=== PATIENT | male | born 1965 | race Caucasian/White ===

== ENCOUNTER 2018-12-27 09:57 | Emergency (ER) | payer BC ==
[~2018-12-27] VITALS: Ht 165.1 cm; Wt 73.6 kg
[2018-12-27] MEDS ORDERED: IBUP-1114 PO (10:14)
[2018-12-27] MEDS ORDERED: CYCLOBENZAPRINE 10 MG TAB PO ONE (10:30)
[2018-12-27] MEDS ORDERED: KETOROLAC 60 MG/2 ML VIAL (J1885) IM ONE (10:30)
[2018-12-27] MEDS ORDERED: ACETAMINOPHEN 325 MG TAB PO ONE (10:30)
--- NOTE | 2018-12-27 12:01 | REP ---
Lumbar spine series: Five views. History: History of herniated disc L1-2. Back pain. Decreased range of motion. Findings: There is a mild levoconvex curvature on the frontal view. Lumbar vertebral body heights are preserved. There is straightening on the lateral radiograph. Discogenic spurring is seen to some degree at each lumbar and lower thoracic level. Mild in degree. There is mild disc space narrowing at L2-3 and L3-4. Vertebral body heights are preserved. There is no evidence of spondylolysis or spondylolisthesis. There is facet hypertrophy and sclerosis bilaterally at L5-S1. Psoas margins are symmetric. Sacrum and SI joints are intact. Impression: Mild degenerative spondylosis changes. No acute bony abnormality. Electronically Signed by Lamont Stone MD 12/27/2018 12:37 P
[2018-12-27 12:13] VITALS: BP 120/77
[2018-12-27] MEDS ORDERED: CYCL10TA PO (12:45)
[2018-12-27] MEDS ORDERED: KETO10TAB PO (12:45)
== END 2018-12-27 12:52 | disposition home or self-care (01) ==
LOC: M ED 09:57
DX: S39.012A Strain of muscle, fascia and tendon of lower back, initial encounter (principal); X58.XXXA Exposure to other specified factors, initial encounter; Y92.89 Other specified places as the place of occurrence of the external cause
CPT/HCPCS: 72110; 96372; 99283; J1885

== ENCOUNTER 2020-03-29 13:39 | Day surgery (SDC) | payer BC ==
[~2020-03-29] VITALS: Ht 165.1 cm; Wt 69.0 kg
[~2020-03-29 13:39] MED LIST changes: -AMOX500T2 PO; -GASTROGRAFIN SOLUTION 30ML (Q9963) As Ordered ONE; -HYDR-3715 PO; -ISOVUE-370 76% 100ML VIAL As Ordered ONE
--- OUTSIDE RECORDS SUMMARY | 2020-03-29 13:45 | CCD | Continuity of Care Document ---
Author Author [facility] Organization Unknown Address [address] [place] [address] [place] [address] Phone [phone] Care Team Providers Care Bank Accountant Name Role Phone Peggy Fontana MD [facility] [phone] Problems Description No Information Available Social History Type Date Description Comments Sex Unknown Tobacco Use Start: Unknown Never Smoked Cigarettes ETOH Use Rarely consumes alcohol Tobacco Use Start: Unknown Patient has never smoked Allergies, Adverse Reactions, Alerts Description No Known Drug Allergies Medications Active Medications SIG Qnty Indications Ordering Provide r Date Epipen 2-Rahat 0.3mg/0 .3ML Solution Auto-Inject intramuscular auto-injection to outer thigh as directe d for anaphylaxis 2units L50.1 Diogo Rutledge JR., M.D. 10/19/2016 Aleve 220mg Capsules Unknown Benadryl Allergy 25mg Capsules last night Unknown Mvi Unknown Medications Administered in Office Medication SIG Qnty Indications Ordering Provider Date Methylprednisolone Sodium Succinate To 1 25 MG Injection LUC Tucker 017 Immunizations CPT Code Status Date Vaccine Reaction Lot # [id number] Given 01/28/2020 Influenza Virus Vaccine, Quadrivalent (Cciiv4), Derived From Cell 64533 Given 01/13/2019 Influenza Virus Vaccine, Quadrivalent (Cciiv4), Derived From Cell 78860 Given 01/14/2018 Influenza Virus Vaccine, Quadrivalent (Cciiv4), Derived From Cell 99130 Given 12/19/2016 Influenza Virus Vaccine, Quadrivalent, Split Virus, Im Use No reation. [id number] Vital Signs Date Vital Result Comment 01/21/2017 1:36pm BP Systolic 120 mmHg BP Diastolic 80 mmHg Heart Rate 71 /min Respiratory Rate 18 /min O2 % BldC Oximetry 98 % Body Temperature 98.4 F Weight 150.00 lb Height 65 inches 5'5" BMI (Body Mass Index) 25.0 kg/m2 Pain Level 1 10/19/2016 8:18am BP Systolic 118 mmHg BP Diastolic 84 mmHg Heart Rate 76 /min Respiratory Rate 18 /min O2 % BldC Oximetry 99 % Body Temperature 98.6 F Weight 140.00 lb Height 65 inches 5'5" BMI (Body Mass Index) 23.3 kg/m2 Pain Level 5 Results Description No Information Available Procedures Description No Information Available Medical Devices Description No Information Available Encounters Description No Information Available Assessments Date Code Description Provider 01/28/2020 Z23 Encounter for immunization LUC Schwartz Plan of Treatment 01/21/2017 - LUC Tucker* J20.9 Acute bronchitis, unspecified* New Medication:* Augmentin 875-125 mg - 1 tab by mouth twice a day for 10 days * Comments:* Medications as directed.Increase fluids and rest.Tylenol and ibuprofen for fevers and body aches.Follow up if no improvement over the next 5-7 days or if symptoms significantly worsen.Patient verbalized understanding and was agreeable to plan. Functional Status Description No Information Available Mental Status Description No Information Available Referrals Description No Information Available
--- OUTSIDE RECORDS SUMMARY | 2020-03-29 13:45 | CCD ---
Author Author [facility] Organization [facility] Address Unknown Phone Unavailable Care Team Providers Care Military Education Coordinator Name Role Phone Jaun, Elise TREATING PLANT OPERATOR Unavailable Unavailable Jaun, Elise TREATING PLANT OPERATOR Unavailable Unavailable Jaun, Elise TREATING PLANT OPERATOR Unavailable Unavailable Jaun, Elise TREATING PLANT OPERATOR Unavailable Unavailable Jaun, Elise TREATING PLANT OPERATOR Unavailable Unavailable Jaun, Elise TREATING PLANT OPERATOR Unavailable Unavailable Jaun, Elise TREATING PLANT OPERATOR Unavailable Unavailable Jaun, Elise TREATING PLANT OPERATOR Unavailable Unavailable Jaun, Elise TREATING PLANT OPERATOR Unavailable Unavailable Jaun, Elise TREATING PLANT OPERATOR Unavailable Unavailable Jaun, Elise TREATING PLANT OPERATOR Unavailable Unavailable Jaun, Elise TREATING PLANT OPERATOR Unavailable Unavailable Jaun, Elise TREATING PLANT OPERATOR Unavailable Unavailable Jaun, Elise TREATING PLANT OPERATOR Unavailable Unavailable Jaun, Elise TREATING PLANT OPERATOR Unavailable Unavailable Jaun, Elise TREATING PLANT OPERATOR Unavailable Unavailable Jaun, Elise TREATING PLANT OPERATOR Unavailable Unavailable Jaun, Elise TREATING PLANT OPERATOR Unavailable Unavailable Jaun, Elise TREATING PLANT OPERATOR Unavailable Unavailable Jaun, Elise TREATING PLANT OPERATOR Unavailable Unavailable Jaun, Elise TREATING PLANT OPERATOR Unavailable Unavailable Jaun, Elise TREATING PLANT OPERATOR Unavailable Unavailable Jaun, Elise TREATING PLANT OPERATOR Unavailable Unavailable Jaun, Elise TREATING PLANT OPERATOR Unavailable Unavailable Jaun, Elise TREATING PLANT OPERATOR Unavailable Unavailable Jaun, Elise TREATING PLANT OPERATOR Unavailable Unavailable Jaun, Elise TREATING PLANT OPERATOR Unavailable Unavailable Jaun, Elise TREATING PLANT OPERATOR Unavailable Unavailable Jaun, Elise TREATING PLANT OPERATOR Unavailable Unavailable Jaun, Elise TREATING PLANT OPERATOR Unavailable Unavailable Jaun, Elise TREATING PLANT OPERATOR Unavailable Unavailable Jaun, Elise TREATING PLANT OPERATOR Unavailable Unavailable Jaun, Elise TREATING PLANT OPERATOR Unavailable Unavailable Jaun, Elise TREATING PLANT OPERATOR Unavailable Unavailable Jaun, Elise TREATING PLANT OPERATOR Unavailable Unavailable Jaun, Elise TREATING PLANT OPERATOR Unavailable Unavailable Jaun, Elise TREATING PLANT OPERATOR Unavailable Unavailable Jaun, Elise TREATING PLANT OPERATOR Unavailable Unavailable Jaun, Elise TREATING PLANT OPERATOR Unavailable Unavailable Jaun, Elise TREATING PLANT OPERATOR Unavailable Unavailable Jaun, Elise TREATING PLANT OPERATOR Unavailable Unavailable Jaun, Elise TREATING PLANT OPERATOR Unavailable Unavailable Jaun, Elise TREATING PLANT OPERATOR Unavailable Unavailable Jaun, Elise TREATING PLANT OPERATOR Unavailable Unavailable Jaun, Elise TREATING PLANT OPERATOR Unavailable Unavailable Jaun, Elise TREATING PLANT OPERATOR Unavailable Unavailable Jaun, Elise TREATING PLANT OPERATOR Unavailable Unavailable Jaun, Elise TREATING PLANT OPERATOR Unavailable Unavailable Jaun, Elise TREATING PLANT OPERATOR Unavailable Unavailable Jaun, Elise TREATING PLANT OPERATOR Unavailable Unavailable Jaun, Elise TREATING PLANT OPERATOR Unavailable Unavailable Jaun, Elise TREATING PLANT OPERATOR Unavailable Unavailable Jaun, Elise TREATING PLANT OPERATOR Unavailable Unavailable Re-disclosure Warning The records that you are about to access may contain information from federally-assisted alcohol or drug abuse programs. If such information is present, then the following federally mandated warning applies: This information has been disclosed to you from records protected by federal confidentiality rules (42 CFR part 2). The federal rules prohibit you from making any further disclosure of this information unless further disclosure is expressly permitted by the written consent of the person to whom it pertains or as otherwise permitted by 42 CFR part 2. A general authorization for the release of medical or other information is NOT sufficient for this purpose. The Federal rules restrict any use of the information to criminally investigate or prosecute any alcohol or drug abuse patient.The records that you are about to access may contain highly sensitive health information, the redisclosure of which is protected by Article 27-F of the [facility] Public Health law. If you continue you may have access to information: Regarding HIV / AIDS; Provided by facilities licensed or operated by the [facility] Office of Mental Health; or Provided by the [facility] Office for People With Developmental Disabilities. If such information is present, then the following [facility] mandated warning applies: This information has been disclosed to you from confidential records which are protected by state law. State law prohibits you from making any further disclosure of this information without the specific written consent of the person to whom it pertains, or as otherwise permitted by law. Any unauthorized further disclosure in violation of state law may result in a fine or care home sentence or both. A general authorization for the release of medical or other information is NOT sufficient authorization for further disc losure. Family History Family Member Name Family Member Gender Family Member Status Date o f Status Description Data Source(s) Unknown Female Problem [facility] Unknown Unknown Problem MEDENT ([facility], [facility]) Unknown Unknown Problem MEDENT (Ruddy Martínez MD, ) Encounters Encounter Providers Location Date Indications Data Source(s ) Outpatient Attender: Elise Zamorano TREATING PLANT OPERATOR Aamir Reynolds 06/23/2019 08:30:00 AM EDT MEDENT ([facility] ) Immunizations Vaccine Date Status Description Data Source(s) Influenza Virus Vaccine, Quadrivalent (Cciiv4), Derive d From Cell 01/28/2020 07:27:00 AM EST completed MEDENT ([facility]) Medications Medication Brand Name Start Date Product Form Dose Route Admi nistrative Instructions Pharmacy Instructions Status Indications Reaction Description Data Source(s) Shingrix Shingrix 06/23/2019 12:00:00 AM EDT activ e MEDENT ([facility]) Insurance Providers Payer name Policy type / Coverage type Policy ID Covered democrat ID Covered democrat's relationship to murrell Policy Murrell Plan Information [place]/307 [id number] SP [id number] EXCELL[employer] BCBS B [id number] [place] [id number] [place] 302/307 [id number] SP [id number] [place] 302/307 [id number] SP [id number] [facility] Trad/MX Medigap Part B [id number] Self [id number] [facility] Trad/MX Commercial [id number] Self [id number] [facility] Trad/MX Commercial [id number] Self [id number] [facility] Trad/MX Commercial [id number] Self [id number] BCBS/[employer]cell[employer] Commercial [id number] Self [place] [id number] BC[place]/[employer] Commercial [id number] [place] [id number] BS [employer] Trad/MX Commercial [id number] Self [id number] Lifetime Benefit Solution Commercial Self Excell[employer] BCBS Health Maintenance Organization (HMO) [id number] Self [id number] BS Awais Trad/MX Commercial Self BCBS/[place]cellus Commercial Self BC/BS Of [facility] Commercial Self [place] 305/805 [id number] SP [id number] [place] 305/805 [id number] SP [id number] Results ID Date Data Source [id number] 06/25/2019 01:37:00 PM JHOAN HARVEY ([facility]) Name Value Range Interpretation Code Description Data Joellen rce(s) Supporting Document(s) Hemoglobin.gastrointestinal [Presence] in Stool by Imm unologic method Laboratory test result [facility] ) Procedure Vital Signs ID Date Data Source UNK Name Value Range Interpretation Code Description Data Source(s) Body mass index (BMI) [Ratio] 27.8 kg/m2 27.8 k g/m2 WES ([facility]) Oxygen saturation in Arterial blood by Pulse oximetry 99 % 99 % [facility] ([facility]) RM Air Body weight 157.00 [lb_av] 157.00 [lb_av] ROMAINEEN T ([facility]) Body height 63 [in_i] 63 [in_i] [facility] ([facility]) 5'3" Heart rate 90 /min 90 /min [facility] ([facility]) Diastolic blood pressure 60 mm[Hg] 60 mm[Hg] [facility] ([facility]) Systolic blood pressure 120 mm[Hg] 120 mm[Hg] NICOLE ([facility])
--- OUTSIDE RECORDS SUMMARY | 2020-03-29 13:45 | CCD | Continuity of Care Document ---
Author Author [facility] Organization Unknown Address [address] [place] [address] [place] [address] Phone [phone] Care Team Providers Care Help Desk Analyst Name Role Phone Peggy Fontana MD [facility] [phone] Problems Description No Information Available Social History [...] Code Status Date Vaccine Reaction Lot # [id number] Given 01/13/2019 Influenza Virus Vaccine, Quadrivalent (Cciiv4), Derived From Cell 08455 Given 01/14/2018 Influenza Virus Vaccine, Quadrivalent (Cciiv4), Derived From Cell 60871 Given 12/19/2016 Influenza Virus Vaccine, Quadrivalent, Split Virus, Im Use No reation. [id number] Vital Signs Date Vital Result Comment 01/21/2017 [...] Available Encounters Description No Information Available Assessments Description No Information Available Plan of Treatment 01/21/2017 - LUC Tucker* [...]
[2020-03-29] MEDS ORDERED: NS 1,000 ML IV SCH (14:28)
[2020-03-29] MEDS ORDERED: ONDANSETRON 4MG/2ML VIAL IV ONE (14:30)
[2020-03-29] MEDS ORDERED: MORPHINE 4 MG/ML 1ML VIAL/SYRINGE (J2270) IV ONE (14:30)
--- OUTSIDE RECORDS SUMMARY | 2020-03-29 15:04 | CCD ---
Author Author [facility] Organization [facility] Address Unknown Phone Unavailable Care Team Providers Care Story Analyst Name Role Phone Jaun, Elise DEDICATED INTERMODAL TRUCK DRIVER Unavailable Unavailable Jaun, Elise DEDICATED INTERMODAL TRUCK DRIVER Unavailable Unavailable Jaun, Elise DEDICATED INTERMODAL TRUCK DRIVER Unavailable Unavailable Jaun, Elise DEDICATED INTERMODAL TRUCK DRIVER Unavailable Unavailable Jaun, Elise DEDICATED INTERMODAL TRUCK DRIVER Unavailable Unavailable Jaun, Elise DEDICATED INTERMODAL TRUCK DRIVER Unavailable Unavailable Jaun, Elise DEDICATED INTERMODAL TRUCK DRIVER Unavailable Unavailable Jaun, Elise DEDICATED INTERMODAL TRUCK DRIVER Unavailable Unavailable Jaun, Elise DEDICATED INTERMODAL TRUCK DRIVER Unavailable Unavailable Jaun, Elise DEDICATED INTERMODAL TRUCK DRIVER Unavailable Unavailable Jaun, Elise DEDICATED INTERMODAL TRUCK DRIVER Unavailable Unavailable Jaun, Elise DEDICATED INTERMODAL TRUCK DRIVER Unavailable Unavailable Jaun, Elise DEDICATED INTERMODAL TRUCK DRIVER Unavailable Unavailable Jaun, Elise DEDICATED INTERMODAL TRUCK DRIVER Unavailable Unavailable Jaun, Elise DEDICATED INTERMODAL TRUCK DRIVER Unavailable Unavailable Jaun, Elise DEDICATED INTERMODAL TRUCK DRIVER Unavailable Unavailable Jaun, Elise DEDICATED INTERMODAL TRUCK DRIVER Unavailable Unavailable Jaun, Elise DEDICATED INTERMODAL TRUCK DRIVER Unavailable Unavailable Jaun, Leise DEDICATED INTERMODAL TRUCK DRIVER Unavailable Unavailable Jaun, Elise DEDICATED INTERMODAL TRUCK DRIVER Unavailable Unavailable Jaun, Elise DEDICATED INTERMODAL TRUCK DRIVER Unavailable Unavailable Jaun, Elise DEDICATED INTERMODAL TRUCK DRIVER Unavailable Unavailable Jaun, Elise DEDICATED INTERMODAL TRUCK DRIVER Unavailable Unavailable Jaun, Elise DEDICATED INTERMODAL TRUCK DRIVER Unavailable Unavailable Jaun, Elise DEDICATED INTERMODAL TRUCK DRIVER Unavailable Unavailable Jaun, Elise DEDICATED INTERMODAL TRUCK DRIVER Unavailable Unavailable Jaun, Elise DEDICATED INTERMODAL TRUCK DRIVER Unavailable Unavailable Jaun, Elise DEDICATED INTERMODAL TRUCK DRIVER Unavailable Unavailable Jaun, Elise DEDICATED INTERMODAL TRUCK DRIVER Unavailable Unavailable Jaun, Elise DEDICATED INTERMODAL TRUCK DRIVER Unavailable Unavailable Jaun, Elise DEDICATED INTERMODAL TRUCK DRIVER Unavailable Unavailable Jaun, Elise DEDICATED INTERMODAL TRUCK DRIVER Unavailable Unavailable Jaun, Elise DEDICATED INTERMODAL TRUCK DRIVER Unavailable Unavailable Jaun, Elise DEDICATED INTERMODAL TRUCK DRIVER Unavailable Unavailable Jaun, Elise DEDICATED INTERMODAL TRUCK DRIVER Unavailable Unavailable Jaun, Elise DEDICATED INTERMODAL TRUCK DRIVER Unavailable Unavailable Jaun, Elise DEDICATED INTERMODAL TRUCK DRIVER Unavailable Unavailable Jaun, Elise DEDICATED INTERMODAL TRUCK DRIVER Unavailable Unavailable Jaun, Elise DEDICATED INTERMODAL TRUCK DRIVER Unavailable Unavailable Jaun, Elise DEDICATED INTERMODAL TRUCK DRIVER Unavailable Unavailable Jaun, Elise DEDICATED INTERMODAL TRUCK DRIVER Unavailable Unavailable Jaun, Elise DEDICATED INTERMODAL TRUCK DRIVER Unavailable Unavailable Jaun, Elise DEDICATED INTERMODAL TRUCK DRIVER Unavailable Unavailable Jaun, Elise DEDICATED INTERMODAL TRUCK DRIVER Unavailable Unavailable Jaun, Elise DEDICATED INTERMODAL TRUCK DRIVER Unavailable Unavailable Jaun, Elise DEDICATED INTERMODAL TRUCK DRIVER Unavailable Unavailable Jaun, Elise DEDICATED INTERMODAL TRUCK DRIVER Unavailable Unavailable Jaun, Elise DEDICATED INTERMODAL TRUCK DRIVER Unavailable Unavailable Jaun, Elise DEDICATED INTERMODAL TRUCK DRIVER Unavailable Unavailable Jaun, Elise DEDICATED INTERMODAL TRUCK DRIVER Unavailable Unavailable Jaun, Elise DEDICATED INTERMODAL TRUCK DRIVER Unavailable Unavailable Jaun, Elise DEDICATED INTERMODAL TRUCK DRIVER Unavailable Unavailable Jaun, Elise DEDICATED INTERMODAL TRUCK DRIVER Unavailable Unavailable Re-disclosure Warning The records that [...] is protected by Article 27-F of the [facility] Public Health law. If you continue you may have access to information: Regarding HIV / AIDS; Provided by facilities licensed or operated by the [facility] Office of Mental Health; or Provided by the [facility] Office for People With Developmental Disabilities. If such information is present, then the following [facility] mandated warning applies: This information [...] law may result in a fine or custodial sentence or both. A general authorization for the release of medical or other information is NOT sufficient authorization for further disc losure. Family History Family Member Name Family Member Gender Family Member Status Date o f Status Description Data Source(s) Unknown Female Problem [facility] Unknown Unknown Problem MEDENT ([facility], [facility]) Unknown Unknown Problem MEDENT (Ruddy Martínez MD, ) Encounters Encounter Providers Location Date Indications Data Source(s ) Outpatient Attender: Elise Zamorano DEDICATED INTERMODAL TRUCK DRIVER Aamir Reynolds 06/23/2019 08:30:00 AM EDT MEDENT ([facility] ) Immunizations Vaccine Date Status Description Data Source(s) Influenza Virus Vaccine, Quadrivalent (Cciiv4), Derive d From Cell 01/28/2020 07:27:00 AM EST completed MEDENT ([facility], [facility]) Medications Medication Brand Name Start Date Product Form Dose Route Admi nistrative Instructions Pharmacy Instructions Status Indications Reaction Description Data Source(s) Shingrix Shingrix 06/23/2019 12:00:00 AM EDT activ e MEDENT ([facility]) Insurance Providers Payer name Policy type / Coverage type Policy ID Covered democrat ID Covered democrat's relationship to murrell Policy Murrell Plan Information [place] 302/307 [id number] SP [id number] EXCELLUS BCBS B [id number] S [place] [id number] [place] 302/307 [id number] SP [id number] [place] P[place] 302/307 [id number] SP [id number] [facility] Trad/MX Medigap Part B [id number] Self [id number] [facility] Trad/MX Commercial [id number] Self [id number] [facility] Trad/MX Commercial [id number] Self [id number] [facility] Trad/MX Commercial [id number] Self [id number] BCBS/[employer]cellus Commercial [id number] Self [place] [id number] BCBS/[employer]cell[employer] Commercial [id number] Self [place] [id number] [employer] Trad/MX Commercial [id number] Self [id number] Lifetime Benefit Solution Commercial Self Excell[employer] BCBS Health Maintenance Organization (HMO) [id number] Self [id number] BS [employer] Trad/MX Commercial Self BCBS/[employer]cellus Commercial Self BC/BS Of [facility] Commercial Self [place] 305/805 [id number] SP [id number] [place] 305/805 [id number] SP [id number] Results ID Date Data Source [id number] 06/25/2019 01:37:00 PM JHOAN HARVEY ([facility]) Name Value Range Interpretation Code Description Data Joellen rce(s) Supporting Document(s) Hemoglobin.gastrointestinal [Presence] in Stool by Imm unologic method Laboratory test result [facility] ) Procedure Vital Signs ID Date Data Source UNK Name Value Range Interpretation Code Description Data Source(s) Body mass index (BMI) [Ratio] 27.8 kg/m2 27.8 k g/m2 WES ([facility]) Oxygen saturation in Arterial blood by Pulse oximetry 99 % 99 % [facility] ([facility]) RM Air Body weight 157.00 [lb_av] 157.00 [lb_av] ROMAINEEN T ([facility]) Body height 63 [in_i] 63 [in_i] [facility] ([facility]) 5'3" Heart rate 90 /min 90 /min [facility] ([facility]) Diastolic blood pressure 60 mm[Hg] 60 mm[Hg] [facility] ([facility]) Systolic blood pressure 120 mm[Hg] 120 mm[Hg] NICOLE ([facility])
[2020-03-29 15:08] LABS: BASO % 0.2 % (0.0-1.0); EOS % 0.2 % (0.0-3.0); HEMATOCRIT 44.8 % (42.0-52.0); HEMOGLOBIN 14.3 g/dl (13.5-17.5); LYMPH # 1.2 10^3/uL (1.5-5.0); LYMPH % 6.5 % (24.0-44.0); MEAN CORPUSCULAR HEMOGLOBIN 30.4 pg (27.0-33.0); MEAN CORPUSCULAR HGB CONC 31.9 g/dl (32.0-36.5); MEAN CORPUSCULAR VOLUME 95.3 fl (80.0-96.0); MONO # 1.4 10^3/uL (0.0-0.8); MONO % 7.7 % (0.0-8.0); NEUTROPHILS # 14.9 10^3/uL (1.5-8.5); NEUTROPHILS % 84.8 % (36.0-66.0); PLATELET COUNT, AUTOMATED 232 10^3/uL (150-450); WHITE BLOOD COUNT 17.6 10^3/uL (4.0-10.0)
[2020-03-29 15:19] LABS: INR 1.02; PROTHROMBIN TIME 13.6 SECONDS (12.5-14.3)
[2020-03-29 15:28] LABS: ALBUMIN 3.7 GM/DL (3.2-5.2); ALT/SGPT 31 U/L (12-78); BILIRUBIN,DIRECT 0.1 MG/DL (0.0-0.2); BILIRUBIN,TOTAL 0.4 MG/DL (0.2-1.0); BLOOD UREA NITROGEN 10 MG/DL (7-18); CALCIUM LEVEL 9.5 MG/DL (8.5-10.1); CARBON DIOXIDE LEVEL 27 MEQ/L (21-32); CHLORIDE LEVEL 101 MEQ/L (98-107); CREATININE FOR GFR 0.96 MG/DL (0.70-1.30); GLOMERULAR FILTRATION RATE > 60.0 (>56); GLUCOSE, FASTING 123 MG/DL (70-100); LIPASE 77 U/L (73-393); POTASSIUM SERUM 3.8 MEQ/L (3.5-5.1); SODIUM LEVEL 137 MEQ/L (136-145); TOTAL PROTEIN 6.7 GM/DL (6.4-8.2)
[2020-03-29 15:29] LABS: RSV AMPLIFICATION NEGATIVE (NEGATIVE)
[2020-03-29] MEDS ORDERED: fentaNYL 100 MCG/2 ML INJECTION (J3010) As Ordered ONE (15:37)
[2020-03-29] MEDS ORDERED: METOCLOPRAMIDE INJ 10MG/2ML VIAL (J2765 PER 1) As Ordered ONE (15:38)
[2020-03-29] MEDS ORDERED: ROCURONIUM BROMIDE 50 MG/5 ML VIAL As Ordered ONE (15:38)
[2020-03-29] MEDS ORDERED: MIDAZOLAM INJ 2MG/2ML VIAL (J2250 PER 1MG) As Ordered ONE (15:38)
[2020-03-29] MEDS ORDERED: propofoL 200 MG/20 ML VIAL As Ordered ONE (15:38)
[2020-03-29] MEDS ORDERED: LIDOCAINE 2% 100MG/5ML SDV (FOR ANES.) As Ordered ONE (15:38)
[2020-03-29] MEDS ORDERED: dexameTHASONE 4 MG/ML 1ML VIAL (J1100 PER 1MG) As Ordered ONE (15:38)
--- OUTSIDE RECORDS SUMMARY | 2020-03-29 15:45 | CCD ---
Author Author [facility] Organization [facility] Address Unknown Phone Unavailable Care Team Providers Care Data Control Clerk Supervisor Name Role Phone Jaun, [facility] ADMINISTRATOR Unavailable Unavailable Jaun, [facility] ADMINISTRATOR Unavailable Unavailable Jaun, [facility] ADMINISTRATOR Unavailable Unavailable Jaun, [facility] ADMINISTRATOR Unavailable Unavailable Jaun, [facility] ADMINISTRATOR Unavailable Unavailable Jaun, [facility] ADMINISTRATOR Unavailable Unavailable Jaun, [facility] ADMINISTRATOR Unavailable Unavailable Jaun, [facility] ADMINISTRATOR Unavailable Unavailable Jaun, [facility] ADMINISTRATOR Unavailable Unavailable Jaun, [facility] ADMINISTRATOR Unavailable Unavailable Jaun, [facility] ADMINISTRATOR Unavailable Unavailable Jaun, [facility] ADMINISTRATOR Unavailable Unavailable Jaun, [facility] ADMINISTRATOR Unavailable Unavailable Jaun, [facility] ADMINISTRATOR Unavailable Unavailable Jaun, [facility] ADMINISTRATOR Unavailable Unavailable Jaun, [facility] ADMINISTRATOR Unavailable Unavailable Jaun, [facility] ADMINISTRATOR Unavailable Unavailable Jaun, [facility] ADMINISTRATOR Unavailable Unavailable Jaun, [facility] ADMINISTRATOR Unavailable Unavailable Jaun, [facility] ADMINISTRATOR Unavailable Unavailable Jaun, [facility] ADMINISTRATOR Unavailable Unavailable Jaun, [facility] ADMINISTRATOR Unavailable Unavailable Jaun, [facility] ADMINISTRATOR Unavailable Unavailable Jaun, [facility] ADMINISTRATOR Unavailable Unavailable Jaun, [facility] ADMINISTRATOR Unavailable Unavailable Jaun, [facility] ADMINISTRATOR Unavailable Unavailable Jaun, [facility] ADMINISTRATOR Unavailable Unavailable Jaun, [facility] ADMINISTRATOR Unavailable Unavailable Jaun, [facility] ADMINISTRATOR Unavailable Unavailable Jaun, [facility] ADMINISTRATOR Unavailable Unavailable Jaun, [facility] ADMINISTRATOR Unavailable Unavailable Jaun, [facility] ADMINISTRATOR Unavailable Unavailable Jaun, [facility] ADMINISTRATOR Unavailable Unavailable Jaun, [facility] ADMINISTRATOR Unavailable Unavailable Jaun, [facility] ADMINISTRATOR Unavailable Unavailable Jaun, [facility] ADMINISTRATOR Unavailable Unavailable Jaun, [facility] ADMINISTRATOR Unavailable Unavailable Jaun, [facility] ADMINISTRATOR Unavailable Unavailable Jaun, [facility] ADMINISTRATOR Unavailable Unavailable Jaun, [facility] ADMINISTRATOR Unavailable Unavailable Jaun, [facility] ADMINISTRATOR Unavailable Unavailable Jaun, [facility] ADMINISTRATOR Unavailable Unavailable Jaun, [facility] ADMINISTRATOR Unavailable Unavailable Jaun, [facility] ADMINISTRATOR Unavailable Unavailable Jaun, [facility] ADMINISTRATOR Unavailable Unavailable Jaun, [facility] ADMINISTRATOR Unavailable Unavailable Jaun, [facility] ADMINISTRATOR Unavailable Unavailable Jaun, [facility] ADMINISTRATOR Unavailable Unavailable Jaun, [facility] ADMINISTRATOR Unavailable Unavailable Jaun, [facility] ADMINISTRATOR Unavailable Unavailable Jaun, [facility] ADMINISTRATOR Unavailable Unavailable Jaun, [facility] ADMINISTRATOR Unavailable Unavailable Jaun, [facility] ADMINISTRATOR Unavailable Unavailable Re-disclosure Warning The records that [...] is protected by Article 27-F of the [facility] Public Health law. If you continue you may have access to information: Regarding HIV / AIDS; Provided by facilities licensed or operated by the [facility] Office of Mental Health; or Provided by the [facility] Office for People With Developmental Disabilities. If such information is present, then the following [facility] mandated warning applies: This information has been [...] law may result in a fine or long-term sentence or both. A general authorization for the release of medical or other information is NOT sufficient authorization for further disc losure. Family History Family Member Name Family Member Gender Family Member Status Date o f Status Description Data Source(s) Unknown [facility] Unknown Unknown Problem [facility] ([facility]) Unknown Unknown Problem [facility] (Ruddy Martínez MD, ) Encounters Encounter Providers Location Date Indications Data Source(s ) Outpatient Attender: [facility] ADMINISTRATOR Aamir Reynolds 06/23/2019 08:30:00 AM EDT [facility] ([facility] ) Immunizations Vaccine Date Status Description Data Source(s) Influenza Virus Vaccine, Quadrivalent (Cciiv4), Derive d From Cell 01/28/2020 07:27:00 AM EST completed [facility] ([facility], [facility]) Medications Medication Brand Name Start Date Product Form Dose Route Admi nistrative Instructions Pharmacy Instructions Status Indications Reaction Description Data Source(s) Shingrix Shingrix 06/23/2019 12:00:00 AM EDT activ e [facility] ([facility]) Insurance Providers Payer name Policy type / Coverage type Policy ID Covered libertarian ID Covered libertarian's relationship to murrell Policy [place] Plan Information [place] 302/307 [id number] SP [id number] [employer] [employer]BS B [id number] S [place] [id number] [place] 302/307 [id number] SP [id number] [place] 302/307 [id number] SP [id number] [facility] Trad/MX Medigap Part B [id number] Self [id number] [facility] Trad/[place] Commercial [id number] Self [id number] [facility] Trad/[employer] Commercial [id number] Self [id number] [facility] Trad/[place] Commercial [id number] Self [id number] BC[employer] Commercial [id number] [place] [id number] [employer]/[employer] Commercial [id number] [place] [id number] [employer] [place] Tr[employer]/[place] Commercial [id number] Self [id number] Lifetime Benefit [employer] Commercial Self [employer] BCBS Health Maintenance Organization (HMO) [id number] Self [id number] BS Awais Trad/[place] Commercial Self BCBS/[employer] Commercial Self BC/BS Of [facility] Commercial Self [place] 305/805 [id number] SP [id number] [place] 305/805 [id number] SP [id number] Results ID Date Data Source [id number] 06/25/2019 01:37:00 PM JHOAN HARVEY ([facility]) Name Value Range Interpretation Code Description Data Joellen rce(s) Supporting Document(s) Hemoglobin.gastrointestinal [Presence] in Stool by Imm unologic method Laboratory test result [facility] ) Procedure Vital Signs ID Date Data Source UNK Name Value Range Interpretation Code Description Data Source(s) Body mass index (BMI) [Ratio] 27.8 kg/m2 27.8 k g/m2 WES ([facility]) Oxygen saturation in Arterial blood by Pulse oximetry 99 % 99 % [facility] ([facility]) RM Air Body weight 157.00 [lb_av] 157.00 [lb_av] ROMAINEEN T ([facility]) Body height 63 [in_i] 63 [in_i] [facility] ([facility]) 5'3" Heart rate 90 /min 90 /min [facility] ([facility]) Diastolic blood pressure 60 mm[Hg] 60 mm[Hg] [facility] ([facility]) Systolic blood pressure 120 mm[Hg] 120 mm[Hg] NICOLE ([facility])
[2020-03-29] MEDS ORDERED: BUPIVACAINE/EPIN 0.25% 30 ML VIAL As Ordered ONE (16:02)
[2020-03-29] MEDS ORDERED: ZOSYN 3.375GM VIAL (J2543) As Ordered ONE (16:17)
[2020-03-29] MEDS: NS 1,000 ML IV SCH (17:14)
[2020-03-29] MEDS ORDERED: KETOROLAC 30 MG/ML 1ML VIAL IV PRN (17:15)
[2020-03-29] MEDS ORDERED: NORCO, ANEXSIA 5/325MG TABLET (HYDROcodone/ACETAMINOPHEN) PO PRN ×2 (17:15)
[2020-03-29] MEDS ORDERED: ACETAMINOPHEN TAB 650MG DOSE (2X325MG) PO PRN (17:15)
[2020-03-29] MEDS ORDERED: ONDANSETRON 4MG/2ML VIAL IV PRN ×2 (17:15→17:45)
[2020-03-29] MEDS ORDERED: fentaNYL 100 MCG/2 ML INJECTION (J3010) IV PRN (17:45)
[2020-03-29] MEDS ORDERED: LR 1,000 ML IV SCH (17:45)
[2020-03-29] MEDS ORDERED: PERCOCET 5MG/325MG TAB PO PRN (17:45)
[2020-03-29] MEDS ORDERED: METOCLOPRAMIDE INJ 10MG/2ML VIAL (J2765 PER 1) IV PRN (17:45)
[2020-03-29 18:15] VITALS: BP 110/68
--- NOTE | 2020-03-29 18:21 | HPE ---
HISTORY AND PHYSICAL DATE OF ADMISSION: 03/29/2020 CHIEF COMPLAINT: Abdominal pain. HISTORY OF PRESENT ILLNESS: The patient is 54-year-old male who presents with right lower quadrant pain that started on Sunday. It has gotten progressively worse over the weekend. He went to Urgent Care this morning. They suspected appendicitis and sent him over to the Emergency Room. In the E.R. he had a CT done which did confirm acute appendicitis as well as an elevated white count of 17.6. Therefore I was called to evaluate the patient. He states he has a little bit of chills, no nausea or vomiting. No problems with bowel movements. No recent travel or trauma. No other symptoms other than those. PAST MEDICAL HISTORY: The patient's past medical history is negative. PAST SURGICAL HISTORY: The patient's past surgical history is significant for bilateral inguinal hernias. ALLERGIES: NONE. HOME MEDICATIONS: None. SOCIAL HISTORY: Negative. Denies drug, alcohol or tobacco abuse. FAMILY HISTORY: Noncontributory. REVIEW OF SYSTEMS: Pertinent positives and negatives as stated in the HPI. PHYSICAL EXAMINATION: GENERAL APPEARANCE: Alert and oriented x3, in no acute distress. VITAL SIGNS: Temperature 98.4, pulse 107, respirations 18, blood pressure 140/80, pulse oximetry 98% on room air. HEENT: Pupils are equal, round and reactive to light and accommodation. HEART: S1, S2, regular rate and rhythm. LUNGS: Clear to auscultation bilaterally. ABDOMEN: Soft, tender to palpation right lower quadrant with localized guarding. No rigidity. EXTREMITIES: No clubbing, cyanosis, or edema. LABORATORY STUDIES: White count 17.6, hemoglobin 14.3, platelet count 232. Potassium 3.8, creatinine 0.96. IMAGING: CT abdomen and pelvis was completed showing findings of acute appendicitis in the right lower quadrant with appendiceal dilation, mural thickening and enhancement and with periappendiceal stranding. No abscess or free air. ASSESSMENT AND PLAN: The patient again is a 54-year-old male with acute appendicitis. Recommendation is to proceed with laparoscopic appendectomy. The risks and benefits of the procedure are not limited to but including: Bleeding, infection, hernia formation, damage to surrounding structures, need for further surgery was discussed in detail with the patient and formal consent was obtained and procedure was scheduled urgently. Postoperatively we will keep him overnight due to elevated white count and plan for discharge the first thing in the morning.
--- NOTE | 2020-03-29 18:21 | RO ---
OPERATIVE NOTE DATE OF OPERATION: 03/29/2020 PREOPERATIVE DIAGNOSIS: Acute appendicitis. POSTOPERATIVE DIAGNOSIS: Acute appendicitis. PROCEDURE: Laparoscopic appendectomy. SURGEON: Noé Bryan DO. SUBWAY REPAIR SUPERVISOR: None. ANESTHESIA: General. ESTIMATED BLOOD LOSS: 5 mL. COMPLICATIONS: None. INDICATIONS FOR PROCEDURE: The patient is a 54-year-old male who presents with right lower quadrant pain found to have acute appendicitis. Recommendation was to proceed with laparoscopic appendectomy. Risks and benefits of the procedure not limited to, but including bleeding, infection, hernia formation, damage to surrounding structures, and the need for further surgery were discussed in detail with the patient. Informed consent was obtained and procedure was planned. DESCRIPTION OF PROCEDURE: The patient was brought back to operating room 2. After sufficient sedation, the abdomen was sterilely prepped and draped. Next, a time-out was done to confirm proper patient and proper procedure. Following that, a 5-mm incision was made in the left upper quadrant. A Veress needle was inserted and the abdomen was insufflation to 50 mmHg. The Veress needle was then removed and a 5-mm Optiview port was used to gain access to the abdomen. Once the abdomen was entered, the Veress needle site was examined and there were no signs of any injury. Another 8-mm port was placed infraumbilically in the midline and another 5-mm port suprapubically in the midline. Incidentally, there was a small umbilical hernia identified, as well as a supraumbilical midline ventral hernia as well; both easily reducible and containing just fat. Next, the right lower quadrant was examined. The appendix was adhered to the abdominal wall. This was carefully dissected free using blunt dissection. Once it was dissected off the abdominal wall, it was elevated anteriorly. The mesoappendix was dissected all the way down to the base of the appendix using the Enseal. Once the base was reached, it was ligated with two PDS Endoloops. The appendix was then amputated off the end of the cecum. The appendix was then placed inside of a 5 mm Endo Catch bag and brought out through the umbilical port site. Once the appendix was out, the abdomen was examined. The abdomen was then desufflated. The ports were removed. Skin incisions were closed with 4-0 Vicryl subcuticular sutures. The abdomen was cleaned and dried, 4 x 4 and tape were applied. This ended the procedure.
[2020-03-29 18:45] VITALS: BP 110/71
[2020-03-29 19:45] VITALS: BP 95/62
[2020-03-29] MEDS: SENOKOT S TAB PO SCH (20:26)
[2020-03-29 20:45] VITALS: BP 97/62
[2020-03-29 21:45] VITALS: BP 98/64
[2020-03-29 22:45] VITALS: BP 100/62
[2020-03-29] MEDS: PIPERACILLIN/TAZOBACTAM SOD 3.375 GM in D5W MINI-BAG PLUS 50 ML IV SCH (23:05)
[2020-03-30 02:00] VITALS: BP 100/62
[2020-03-30] MEDS: NS 1,000 ML IV SCH (05:39)
[2020-03-30] MEDS: PIPERACILLIN/TAZOBACTAM SOD 3.375 GM in D5W MINI-BAG PLUS 50 ML IV SCH (05:39)
[2020-03-30 05:55] LABS: HEMATOCRIT 40.3 % (42.0-52.0); HEMOGLOBIN 12.5 g/dl (13.5-17.5); MEAN CORPUSCULAR HEMOGLOBIN 29.6 pg (27.0-33.0); MEAN CORPUSCULAR VOLUME 95.5 fl (80.0-96.0); PLATELET COUNT, AUTOMATED 204 10^3/uL (150-450); RED BLOOD COUNT 4.22 10^6/uL (4.30-6.10); WHITE BLOOD COUNT 13.6 10^3/uL (4.0-10.0)
[2020-03-30 06:00] VITALS: BP 117/78
[2020-03-30] MEDS: SENOKOT S TAB PO SCH (08:07)
[2020-03-30] MEDS ORDERED: HYDR-3715 PO (08:12)
[2020-03-30] MEDS ORDERED: AMOX500T2 PO (08:12)
--- NOTE | 2020-03-30 09:26 | DSES ---
DISCHARGE SUMMARY DATE OF ADMISSION: 03/29/2020 DATE OF DISCHARGE: ADMISSION DIAGNOSIS: Appendicitis. DISCHARGE DIAGNOSIS: Appendicitis. HOSPITAL COURSE: Patient is a 54-year-old male who came into the hospital on the afternoon of 03/29/2020, found to have acute appendicitis. He was brought to the operating room early evening for laparoscopic appendectomy. Postoperatively, he has been doing well, he has been ambulating around the rooms. Pain is significantly improved, no nausea or vomiting, no fevers, he is tolerating food. PLAN: Is to discharge him home this morning. He will go home with antibiotics to take for 5 days, just because his white count is still elevated to 13, down from 18 yesterday, and also send him home with ten pain pills. He can shower starting either late tonight or tomorrow. No baths for 5 days. No lifting more than 20 pounds for 2 weeks. All of his questions are answered and he will followup with me in the office in 2 weeks. SARAHI
== END 2020-03-30 10:25 | disposition home or self-care (01) ==
LOC: M ED 13:39 → M SDC 13:40 → M MS5PR 18:10 → M SDC 03-30 10:25
PROVIDERS: ATTEND Surgery
DX: K35.890 Other acute appendicitis without perforation or gangrene (principal)
CPT/HCPCS: 36415; 44970; 80048; 80076; 81001; 83690; 85025; 85027; 85610; 86850; 86900; 86901; 87631; 88304; 96365; 96366; 96375; 99284; J1100; J2250; J2270; J2405; J2543; J2765; J3010

== ENCOUNTER → 2020-03-29 | Outpatient (CLI) | payer BC ==
[~2020-03-29] MED LIST: AMOX500T2 PO; CYCL-707 PO; GASTROGRAFIN SOLUTION 30ML (Q9963) As Ordered ONE; HYDR-3715 PO; IBUP-1114 PO; ISOVUE-370 76% 100ML VIAL As Ordered ONE; KETO10TAB PO
[2020-03-29 11:40] LABS: BASO % 0.1 % (0.0-1.0); EOS % 0.1 % (0.0-3.0); HEMATOCRIT 46.8 % (42.0-52.0); HEMOGLOBIN 14.8 g/dl (13.5-17.5); LYMPH # 0.8 10^3/uL (1.5-5.0); LYMPH % 4.4 % (24.0-44.0); MEAN CORPUSCULAR HEMOGLOBIN 30.1 pg (27.0-33.0); MEAN CORPUSCULAR HGB CONC 31.6 g/dl (32.0-36.5); MEAN CORPUSCULAR VOLUME 95.1 fl (80.0-96.0); MONO # 1.9 10^3/uL (0.0-0.8); MONO % 10.3 % (2.0-8.0); NEUTROPHILS # 15.2 10^3/uL (1.5-8.5); NEUTROPHILS % 84.6 % (36.0-66.0); PLATELET COUNT, AUTOMATED 249 10^3/uL (150-450); RED BLOOD COUNT 4.92 10^6/uL (4.30-6.10)
[2020-03-29 12:09] LABS: ALT/SGPT 33 U/L (12-78); BILIRUBIN,TOTAL 0.6 MG/DL (0.2-1.0); BLOOD UREA NITROGEN 12 MG/DL (7-18); CALCIUM LEVEL 9.4 MG/DL (8.5-10.1); CARBON DIOXIDE LEVEL 29 MEQ/L (21-32); CHLORIDE LEVEL 104 MEQ/L (98-107); CREATININE FOR GFR 0.85 MG/DL (0.70-1.30); GLOMERULAR FILTRATION RATE > 60.0 (>56); GLUCOSE, FASTING 130 MG/DL (70-100); POTASSIUM SERUM 4.5 MEQ/L (3.5-5.1); SODIUM LEVEL 140 MEQ/L (136-145); TOTAL PROTEIN 6.9 GM/DL (6.4-8.2)
--- NOTE | 2020-03-29 13:21 | REP ---
INDICATION: RLQ ABD PAIN W/ TENDERNESS - STAT LABS FIRST. COMPARISON: None. TECHNIQUE: Helical scanning is acquired and 3 mm axial images re-formatted. Coronal and sagittal MPR images are generated. The CT contrast enhancement dose is 100 mL of intravenous Isovue 370. Oral contrast was also administered. FINDINGS: Digital preliminary barrel lapper radiograph is unremarkable. The lung bases are clear on axial CT images. There is minimal diffuse fatty infiltration of the liver. No focal liver lesion is seen. The spleen is unremarkable. Normal adrenal glands are seen. Gallbladder is normal in appearance. No pancreatic mass or cyst is seen. Kidneys enhance symmetrically. There is a tiny cortical cyst in the right kidney. No retroperitoneal mass or adenopathy is seen. Large and small bowel loops are normal in the upper abdomen. The appendix is abnormal demonstrating fluid distension, concentric mural thickening and enhancement, and periappendiceal stranding consistent with acute appendicitis. The appendix is located in the right lower quadrant in the inguinal region just anterior and superior to the urinary bladder. Dystrophic calcifications are seen in the prostate. The bladder is intact. There is no evidence of free air or abscess. IMPRESSION: Findings of acute appendicitis right lower quadrant with appendiceal dilation, mural thickening and enhancement, and periappendiceal stranding. No abscess or free air. Mild diffuse fatty infiltration of the liver. <Electronically signed by Burt Stone > 03/29/20 [id number]
== END ==
LOC: M RAD 11:09
PROVIDERS: ATTEND Physician Assistant
DX: R10.813 Right lower quadrant abdominal tenderness (principal); K35.80 Unspecified acute appendicitis; K76.0 Fatty (change of) liver, not elsewhere classified
CPT/HCPCS: 36415; 74177; 80053; 85025; Q9963; Q9967

== ENCOUNTER → 2020-10-26 | Outpatient (CLI) | payer BC ==
[~2020-10-26] MED LIST changes: +AMOX500T2 PO; +HYDR-3715 PO
[2020-10-26 10:28] LABS: BLOOD UREA NITROGEN 18 MG/DL (7-18); CALCIUM LEVEL 9.3 MG/DL (8.5-10.1); CARBON DIOXIDE LEVEL 29 MEQ/L (21-32); CHLORIDE LEVEL 108 MEQ/L (98-107); GLOMERULAR FILTRATION RATE > 60.0 (>56); GLUCOSE, FASTING 89 MG/DL (70-100); MAGNESIUM LEVEL 2.3 MG/DL (1.8-2.4); POTASSIUM SERUM 4.6 MEQ/L (3.5-5.1); SODIUM LEVEL 142 MEQ/L (136-145)
== END ==
LOC: M WUC 08:36
PROVIDERS: ATTEND Registered Nurse
DX: E78.5 Hyperlipidemia, unspecified (principal); E83.42 Hypomagnesemia

== ENCOUNTER → 2021-10-25 | Outpatient (CLI) | payer BC ==
[2021-10-25 10:02] LABS: BASO # 0.1 10^3/uL (0.0-0.2); EOS # 0.2 10^3/uL (0.0-0.5); EOS % 4.2 % (0.0-3.0); HEMATOCRIT 46.5 % (42.0-52.0); HEMOGLOBIN 14.4 g/dl (13.5-17.5); LYMPH # 1.8 10^3/uL (1.5-5.0); LYMPH % 35.8 % (24.0-44.0); MEAN CORPUSCULAR HEMOGLOBIN 30.1 pg (27.0-33.0); MEAN CORPUSCULAR VOLUME 97.1 fl (80.0-96.0); MONO # 0.5 10^3/uL (0.0-0.8); MONO % 10.3 % (2.0-8.0); NEUTROPHILS # 2.4 10^3/uL (1.5-8.5); NEUTROPHILS % 48.5 % (36.0-66.0); PLATELET COUNT, AUTOMATED 259 10^3/uL (150-450); RED BLOOD COUNT 4.79 10^6/uL (4.30-6.10)
[2021-10-25 11:05] LABS: ALBUMIN 3.9 GM/DL (3.2-5.2); ALT/SGPT 33 U/L (12-78); BILIRUBIN,TOTAL 0.3 MG/DL (0.2-1.0); BLOOD UREA NITROGEN 17 MG/DL (7-18); CALCIUM LEVEL 9.3 MG/DL (8.5-10.1); CARBON DIOXIDE LEVEL 28 MEQ/L (21-32); CHLORIDE LEVEL 108 MEQ/L (98-107); CHOLESTEROL LEVEL 235 MG/DL (<200); CHOLESTEROL RISK RATIO 3.671 (<5); CREATININE FOR GFR 0.91 MG/DL (0.70-1.30); GLOMERULAR FILTRATION RATE > 60.0 (>56); GLUCOSE, FASTING 91 MG/DL (70-100); HDL CHOLESTEROL 64 MG/DL (>40); LDL CHOLESTEROL 153 MG/DL (<100); MAGNESIUM LEVEL 2.1 MG/DL (1.8-2.4); NON-HDL-C 171 MG/DL; POTASSIUM SERUM 4.2 MEQ/L (3.5-5.1); SODIUM LEVEL 140 MEQ/L (136-145); TOTAL PROTEIN 6.5 GM/DL (6.4-8.2); TRIGLYCERIDES LEVEL 92 MG/DL (<150)
== END ==
LOC: M WUC 07:30
PROVIDERS: ATTEND Registered Nurse
DX: E78.5 Hyperlipidemia, unspecified (principal); Z12.12 Encounter for screening for malignant neoplasm of rectum; E83.42 Hypomagnesemia
CPT/HCPCS: 36415; 80053; 80061; 83735; 85025; G0103

== ENCOUNTER → 2022-10-17 | Outpatient (CLI) | payer BC ==
[2022-10-17 10:22] LABS: BASO % 0.9 % (0.0-1.0); EOS # 0.2 10^3/uL (0.0-0.5); EOS % 5.3 % (0.0-3.0); HEMATOCRIT 44.9 % (42.0-52.0); HEMOGLOBIN 14.3 g/dl (13.5-17.5); LYMPH # 1.6 10^3/uL (1.5-5.0); LYMPH % 35.9 % (24.0-44.0); MEAN CORPUSCULAR HEMOGLOBIN 30.8 pg (27.0-33.0); MEAN CORPUSCULAR HGB CONC 31.8 g/dl (32.0-36.5); MEAN CORPUSCULAR VOLUME 96.8 fl (80.0-96.0); MONO # 0.5 10^3/uL (0.0-0.8); MONO % 10.8 % (2.0-8.0); NEUTROPHILS % 46.4 % (36.0-66.0); PLATELET COUNT, AUTOMATED 233 10^3/uL (150-450); RED BLOOD COUNT 4.64 10^6/uL (4.30-6.10); WHITE BLOOD COUNT 4.4 10^3/uL (4.0-10.0)
[2022-10-17 11:01] LABS: PROSTATIC SPECIFIC AG MONITOR 0.89 NG/ML (< 4.00)
[2022-10-17 11:04] LABS: ALBUMIN 3.8 G/DL (3.2-5.2); ALKALINE PHOSPHATASE 55 U/L (46-116); ALT/SGPT 23 U/L (7.0-40); AST/SGOT 13 U/L (<34); BILIRUBIN,TOTAL 0.4 MG/DL (0.3-1.2); BLOOD UREA NITROGEN 18 MG/DL (9-23); CALCIUM LEVEL 9.1 MG/DL (8.5-10.1); CARBON DIOXIDE LEVEL 28 MMOL/L (20-31); CHLORIDE LEVEL 109 MMOL/L (98-107); CHOLESTEROL LEVEL 221 MG/DL (<200); CHOLESTEROL RISK RATIO 3.54 (<5); CREATININE FOR GFR 0.89 MG/DL (0.70-1.30); GLOMERULAR FILTRATION RATE > 60.0 (>56); GLUCOSE, FASTING 84 MG/DL (60-100); HDL CHOLESTEROL 62.3 MG/DL (>40); LDL CHOLESTEROL 138.7 MG/DL (<100); MAGNESIUM LEVEL 1.9 MG/DL (1.8-2.4); NON-HDL-C 158.7 MG/DL; POTASSIUM SERUM 4.7 MMOL/L (3.5-5.1); SODIUM LEVEL 142 MMOL/L (136-145); TOTAL PROTEIN 6.3 G/DL (5.7-8.2); TRIGLYCERIDES LEVEL 100 MG/DL (<150)
== END ==
LOC: M WUC 08:28
PROVIDERS: ATTEND Internal Medicine
DX: Z00.00 Encounter for general adult medical examination without abnormal findings (principal); E78.5 Hyperlipidemia, unspecified; E83.42 Hypomagnesemia

== ENCOUNTER → 2023-11-05 | Outpatient (CLI) | payer BC ==
[2023-11-05 11:16] LABS: BASO % 0.6 % (0.0-1.0); EOS # 0.2 10^3/uL (0.0-0.5); EOS % 3.8 % (0.0-3.0); HEMOGLOBIN 13.7 g/dl (13.5-17.5); LYMPH # 1.3 10^3/uL (1.5-5.0); LYMPH % 24.6 % (24.0-44.0); MEAN CORPUSCULAR HEMOGLOBIN 30.9 pg (27.0-33.0); MEAN CORPUSCULAR HGB CONC 31.9 g/dl (32.0-36.5); MEAN CORPUSCULAR VOLUME 97.1 fl (80.0-96.0); MONO # 0.6 10^3/uL (0.0-0.8); MONO % 11.2 % (2.0-8.0); NEUTROPHILS # 3.1 10^3/uL (1.5-8.5); NEUTROPHILS % 59.2 % (36.0-66.0); PLATELET COUNT, AUTOMATED 177 10^3/uL (150-450); RED BLOOD COUNT 4.43 10^6/uL (4.30-6.10); WHITE BLOOD COUNT 5.3 10^3/uL (4.0-10.0)
[2023-11-05 11:31] LABS: PROSTATIC SPECIFIC AG MONITOR 0.84 NG/ML (< 4.00)
[2023-11-05 11:33] LABS: ALBUMIN 3.6 G/DL (3.2-5.2); ALKALINE PHOSPHATASE 67 U/L (46-116); ALT/SGPT 35 U/L (7.0-40); AST/SGOT 21 U/L (<34); BILIRUBIN,TOTAL 0.3 MG/DL (0.3-1.2); BLOOD UREA NITROGEN 18 MG/DL (9-23); CALCIUM LEVEL 9.3 MG/DL (8.5-10.1); CARBON DIOXIDE LEVEL 30 MMOL/L (20-31); CHLORIDE LEVEL 108 MMOL/L (98-107); CHOLESTEROL LEVEL 210 MG/DL (<200); CHOLESTEROL RISK RATIO 3.48 (<5); CREATININE FOR GFR 0.84 MG/DL (0.70-1.30); GLOMERULAR FILTRATION RATE > 60.0 (>56); GLUCOSE, FASTING 112 MG/DL (60-100); HDL CHOLESTEROL 60.2 MG/DL (>40); LDL CHOLESTEROL 129.6 MG/DL (<100); NON-HDL-C 149.8 MG/DL; POTASSIUM SERUM 4.1 MMOL/L (3.5-5.1); SODIUM LEVEL 141 MMOL/L (136-145); TOTAL PROTEIN 6.3 G/DL (5.7-8.2); TRIGLYCERIDES LEVEL 101 MG/DL (<150)
== END ==
LOC: M WUC 08:53
PROVIDERS: ATTEND Nurse Practitioner Family
DX: E78.5 Hyperlipidemia, unspecified (principal); Z12.5 Encounter for screening for malignant neoplasm of prostate